=== PATIENT | female | born 1945 | race Caucasian/White ===

== ENCOUNTER → 2016-04-28 | Outpatient (CLI) | payer OTHER ==
[2015-07-08 21:25] VITALS: BP 153/69
[~2016-04-28] MED LIST: ALPR0.5T6 PO; ASPI-482 PO; CETI10TA22 PO; CHOL400C PO; CLOP75TA PO; FEXO1TAB27 PO; HYDR25TA9 PO; MONT10TA9 PO; MULT-208 PO; OMEG1CAP6 PO; PANT40TA3 PO; POTA10CA PO; SIMV20TA3 PO
--- NOTE | 2016-04-28 22:27 | PAIN ---
DATE OF SERVICE: 04/28/2016 INITIAL CONSULTATION DIAGNOSES: Lumbar radiculopathy with lumbar degenerative disk disease, post-lumbar laminectomy syndrome with lumbar spondylosis. HISTORY OF PRESENT ILLNESS: The patient is a 70-year-old female who returns, last seen in 06/2015. The patient had undergone physical therapy at that time with good results with traction in the spine, but pain has been persistently present in the low back and bilateral lower extremities since that time with significant pain again radiating to bilateral lower extremities, somewhat more on the left than the right with previous history of lumbar laminectomy with no treatment of the lumbar spine since the surgery. The patient reports it was around 2004 or so. The patient is taking Tylenol With Codeine, which helps some and also regular strength Tylenol, which helped by about 10-20%, but the patient reports has constant pain in her low back and severe when she is walking, bending, standing, muscle cramping, easy fatiguability of both her legs, worse on the left than the right with ambulation. The patient has not been using any assistive devices recently such as canes or walkers to ambulate, just been holding on to her or to the hand rail and things like to help her stabilize herself. The patient did have chiropractic treatment in the past as well as physical therapy last year. She has been doing some stretching and strengthening exercises that they showed her at the physical therapy even until now, which she tries every morning, but still significant pain radiating to the low back and lower extremities, again worse on the left, radiating to posterior gluteus, posterior thigh, lateral thigh and posterior calf to the level of the ankle, again worse on the left side. PAST MEDICAL HISTORY: Significant for shortness of breath, hypertension, sinus congestion, gastroesophageal reflux, hypercholesterolemia, coronary artery disease, vertigo, anxiety and osteoporosis as well as arthritis. PREVIOUS SURGERY: Include hysterectomy, lumbar laminectomy in 2004, cervical laminectomy, right knee scope in 2010, tubal ligation many years ago. CURRENT MEDICATIONS: Include vitamin D3, multivitamins, omega fish oils, Zyrtec, montelukast, pantoprazole, daily baby aspirin, Plavix, hydrochlorothiazide, potassium chloride, alprazolam, simvastatin, and Lizett. ALLERGIES: The patient is allergic to hydrocodone by her report. SOCIAL HISTORY: The patient does not drink, smoke less than a pack a day, is trying to quit, lives with her spouse and great grandchildren and lives locally in [place], [place]. FAMILY HISTORY: Significant for heart disease, diabetes and cancers. REVIEW OF SYSTEMS: The patient's review of systems is positive for those items mentioned in the history of present illness. It is complete, full, well documented on the patient's chart. All systems were reviewed and otherwise negative. PHYSICAL EXAMINATION: VITAL SIGNS: Today, the patient's blood pressure is 140/71, pulse 72, respirations 18, temperature 98.1 degrees Fahrenheit, height is 5 feet 4 inches and weighs 142 pounds. GENERAL: The patient is awake, alert, oriented, appropriate, very pleasant demeanor. HEENT: Shows normocephalic, atraumatic. Extraocular movements are intact and symmetrical. Oral cavity shows mucous membranes moist and pink. Dentition is intact. NECK: Shows anterior throat supple without palpable lymphadenopathy noted. Neck shows full rotation and motion of the cervical spine without difficulty including extension and flexion. CHEST: Shows normal on inspection. Breath sounds are clear to auscultation bilaterally. HEART: Shows S1 and S2 clear. No murmurs are auscultated. ABDOMEN: Normal on inspection breasts, soft, nontender, nondistended. No palpable organomegaly is noted. No rebound or guarding demonstrated. BACK: Shows grossly midline spine. Normal thoracic kyphotic curvature, cervical lordotic curvature and some mild flattening of lumbar lordotic curvature, previously well-healed surgical scar. On inspection, appears roughly symmetrical; however, with symmetrical paraspinous musculature in the lumbar distribution bilaterally. With palpation is moderately tender with palpation only in the low lumbar distribution with diffuse tenderness to a vgzj-ps-axkoahly extent. No tenderness over the spinous processes. No tenderness over the sacrum or sacroiliac regions. The patient shows good rotation and motion of lumbar spine both laterally as well as extension and flexion without difficulty or pain reported. EXTREMITIES: The patient's lower extremities show deep tendon reflexes 1+ in the patellar and tendo calcaneus tendons. Motor exam is strong with 5/5 dorsiflexion, extension, quadriceps and hamstring flexion and are symmetrical. Peripheral pulses are 1+ in the posterior tibial and dorsalis pedis pulses. No peripheral edema is noted. No clubbing, no cyanosis. Gaenslen's and Moshe's maneuvers are negative bilaterally. The patient does have positive straight leg raise on the left only at about 30-35 degrees, which is decreased with knee flexion, right side is negative. The patient is able to stand, stand on her toes, but has some difficulty with losing balance. She is walking with a slight favour limp with the left lower extremity, but only very minimal, does not require any assistive devices to ambulate. PLAN: Options were discussed with the patient including conservative medical management, physical therapy, interventional techniques and she would like to pursue interventional techniques. We discussed a caudal approach epidural steroid injection with the patient; however, she is taking Plavix, we will need to clear this with her asphalt roller person to hold this for 7 days prior. She is willing to pursue this. Also will require preauthorization and we will wait for insurance provider to provide this as well. We will have the patient return once preauthorization is obtained and if deemed safe and acceptable to hold Plavix from her asphalt roller person. We will have this done as well and plan to have her return for caudal epidural steroid injection at that time. MARLA LEBRON MD DR: HUMBERTO/stefany JOB#: [id number] / [id number]
== END | disposition home or self-care (01) ==
LOC: PNCL 12:09
PROVIDERS: ATTEND Anesthesiology
DX: M51.16 Intervertebral disc disorders with radiculopathy, lumbar region (principal); M96.1 Postlaminectomy syndrome, not elsewhere classified; M47.896 Other spondylosis, lumbar region
CPT/HCPCS: 99214

== ENCOUNTER → 2016-05-18 | Outpatient (CLI) | payer OTHER ==
[2015-07-08 21:25] VITALS: BP 153/69
[~2016-05-18] MED LIST changes: +IOHEXOL 180 MG/ML 10 ML VIAL. ONE; +methylPREDNISolone ACETATE 40 MG/ML VIAL. ONE; +methylPREDNISolone ACETATE 80 MG/ML VIAL. ONE
--- NOTE | 2016-05-19 05:05 | PAIN ---
DATE OF SERVICE: 05/18/2016 DIAGNOSES: Lumbar radiculopathy with lumbar degenerative disk disease, post-lumbar laminectomy syndrome with spondylosis. HISTORY OF PRESENT ILLNESS: A 71-year-old female who returns for followup status post initial evaluation and clearance to hold her Plavix from her picker machine operator, which she has been obtained and has been cleared for 7 days to hold, she has been off this ____ 7 days , still some significant pain in the low back and left lower extremity as it was previously. The pain is sharp and burning and aching, worse with activity, standing, walking anywhere from 4-5 on a scale of 10/10 on scale 10 depending on her activity, worse with increased activity. The patient reports still significant pains, aching and dull, shooting in the left leg as it was previously. The patient reports no new motor or sensory deficits, no new bowel or bladder incontinence or any other complaints. PHYSICAL EXAMINATION: VITAL SIGNS: Today, the patient's blood pressure is 138/62, pulse 65, respirations 18, temperature 97.5 degrees Fahrenheit, height is 5 feet 4 inches, weight is 140 pounds. GENERAL: The patient is awake, alert, oriented, appropriate, very pleasant demeanor. HEENT: Head shows normocephalic, atraumatic. Extraocular movements are intact and symmetrical. Oral cavity, mucous membranes are moist and pink. Dentition is intact. NECK: Shows anterior throat supple without palpable lymphadenopathy noted. Swallow reflex is symmetrical. CHEST: Shows normal on inspection. Breath sounds clear to auscultation bilaterally. HEART: Shows S1 and S2 clear. ABDOMEN: Soft, nontender, nondistended. No palpable organomegaly. No rebound or guarding demonstrated. BACK: Shows spine grossly midline. Well healed surgical scars noted with some flattening of lumbar lordotic curvature. Lumbar paraspinous muscle shows some diffuse tenderness in the middle and lower distribution of paraspinous muscle, but only diffusely without radiation. The patient shows no tenderness over the sacrum or sacroiliac regions with palpation. Lower extremities show deep tendon reflexes 1+ in the patellar and tendo calcaneus tendons are equal. Motor exam is 5/5 with dorsiflexion, extension, quadriceps and hamstring flexion and symmetrical as well. Peripheral pulses are 1+ posterior tibial and dorsalis pedis pulses. No peripheral edema is noted. No clubbing or cyanosis. Options were discussed with the patient and the patient's old chart was reviewed as her current medication regimen updated. Current review of systems updated today as well. We will proceed with a caudal approach epidural steroid injection today with fluoroscopic guidance. Risks were again discussed including, but not limited to bleeding, infection, possibility of epidural hematoma, subsequent neurologic compromise, dural puncture, headaches, spinal cord and/or nerve damage, side effects of steroid medication and poor results regarding pain control. The patient understands and wishes to proceed. The patient will return to clinic in approximately 2 weeks for followup, counseled on return appointment, activity level and side effects to be aware of. DIAGNOSES: Lumbar radiculopathy with lumbar degenerative disk disease, spondylosis and post-lumbar laminectomy syndrome. PROCEDURE: Caudal approach epidural steroid injection using the C-arm fluoroscopic guidance, under sterile prep and drape and using local anesthetic. Medications injected 120 mg Depo-Medrol plus 10 mL of preservative-free normal saline and 2 mL of Isovue for contrast. CONDITION AT DISCHARGE: Stable. The patient tolerated procedure well, had no complications. MARLA LEBRON MD DR: HUMBERTO/stefany JOB#: [id number] / [id number]
== END | disposition home or self-care (01) ==
LOC: PNCL 11:13
PROVIDERS: ATTEND Anesthesiology
DX: M51.16 Intervertebral disc disorders with radiculopathy, lumbar region (principal); M47.26 Other spondylosis with radiculopathy, lumbar region; M96.1 Postlaminectomy syndrome, not elsewhere classified
CPT/HCPCS: 62323; J1030; J1040

== ENCOUNTER → 2016-06-17 | Outpatient (CLI) | payer OTHER ==
[2015-07-08 21:25] VITALS: BP 153/69
[~2016-06-17] MED LIST changes: -IOHEXOL 180 MG/ML 10 ML VIAL. ONE; -methylPREDNISolone ACETATE 40 MG/ML VIAL. ONE; -methylPREDNISolone ACETATE 80 MG/ML VIAL. ONE
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
== END | disposition home or self-care (01) ==
LOC: KCIC CT 10:18
PROVIDERS: ATTEND Physician Assistant Medical
DX: M47.892 Other spondylosis, cervical region (principal); S09.90XD Unspecified injury of head, subsequent encounter; V89.2XXD Person injured in unspecified motor-vehicle accident, traffic, subsequent encounter; X58.XXXD Exposure to other specified factors, subsequent encounter
CPT/HCPCS: 70450; 72050

== ENCOUNTER → 2017-06-24 | Outpatient (CLI) | payer OTHER | END | disposition home or self-care (01) | LOC: KCIC CT 12:17 | DX: J43.9 Emphysema, unspecified (principal); J84.10 Pulmonary fibrosis, unspecified; J34.1 Cyst and mucocele of nose and nasal sinus; Z87.891 Personal history of nicotine dependence | CPT/HCPCS: 70486; 71046 ==

== ENCOUNTER → 2017-10-11 | Outpatient (CLI) | payer OTHER | END | disposition home or self-care (01) | LOC: KCIC MRI 09:38 | DX: M51.36 Other intervertebral disc degeneration, lumbar region (principal); M48.061 Spinal stenosis, lumbar region without neurogenic claudication; M71.38 Other bursal cyst, other site; J43.9 Emphysema, unspecified; Z87.891 Personal history of nicotine dependence | CPT/HCPCS: 72148 ==

== ENCOUNTER → 2017-11-30 | Outpatient (CLI) | payer OTHER ==
[2015-07-08 21:25] VITALS: BP 153/69
[~2017-11-30] MED LIST changes: -POTA10CA PO; +POTA10TA12 PO
--- NOTE | 2017-11-30 12:53 | KCIC ---
Three-view lumbar spine dated 11/30/2017. Comparison made to MRI dated 10/11/2017. CLINICAL INDICATION: Chronic low back pain. Sciatica. Left leg pain for 2 to 3 months. FINDINGS: Standing lateral views were obtained in neutral position, flexion and extension. There is slight anterolisthesis of L3 on L4 and L4 on L5 that appears stable in flexion and extension. Sagittal alignment is otherwise anatomic. Vertebral body heights are maintained. Mild endplate hypertrophic changes throughout with moderate arthrosis lower lumbar apophyseal joints. IMPRESSION: 1. Grade 1 anterolisthesis of L3 on L4 and L4 on L5 with no evidence of instability on the flexion-extension views. 2. Moderate lower lumbar spondylosis. Electronically signed by: Robson Hanson MD (11/30/2017 12:50 PM) [facility]-KCIC[facility]
== END | disposition home or self-care (01) ==
LOC: KCIC 11:07
PROVIDERS: ATTEND Neurological Surgery
DX: M47.896 Other spondylosis, lumbar region (principal); M43.16 Spondylolisthesis, lumbar region; J43.9 Emphysema, unspecified; E87.6 Hypokalemia; I25.10 Atherosclerotic heart disease of native coronary artery without angina pectoris; Z87.891 Personal history of nicotine dependence; Z88.8 Allergy status to other drugs, medicaments and biological substances; Z88.6 Allergy status to analgesic agent
CPT/HCPCS: 72100

== ENCOUNTER → 2017-12-26 | Outpatient (CLI) | payer OTHER ==
[2015-07-08 21:25] VITALS: BP 153/69
--- NOTE | 2017-12-26 17:29 | CARD ---
MR#: [id number] Date of Study: 12/26/2017 Ordering Physician: CHIDI LARA, Referring Physician: CHIDI LRAA, Tech: Jaimee Joyner NIMA APPROVED REPORT EXAM: Two-dimensional and M-mode echocardiogram with Doppler and color Doppler. Other Information Quality : AverageHR: 65bpm Rhythm : NSR INDICATION Dyspnea Fatigue Shortness of breath, Pre Op 2D DIMENSIONS RVDd2.5 (2.9-3.5cm)Left Atrium(2D)2.8 (1.6-4.0cm) IVSd0.7 (0.7-1.1cm)Aortic Root(2D)2.7 (2.0-3.7cm) LVDd4.4 (3.9-5.9cm)LVOT Diameter1.8 (1.8-2.4cm) PWd0.8 (0.7-1.1cm)LVDs3.1 (2.5-4.0cm) FS (%) 28.5 %SV48.0 ml LVEF(%)55.0 (>50%) M-Mode DIMENSIONS Left Atrium(MM)3.07 (2.5-4.0cm)Aortic Root3.16 (2.2-3.7cm) Aortic Valve AoV Peak Jhony.146.9cm/sAoV VTI30.2cm AO Peak GR.8.6mmHgLVOT Peak Jhony.100.6cm/s AO Mean GR.4mmHgAVA (VMAX)1.73cm2 SONU (VTI)1.30fv9RF P 1/2 Wrqw693pz Mitral Valve MV E Trzrorlo24.2cm/sMV E Peak Gr.4mmHg MV DECEL [id number] A Exmmxroi13.3cm/s MV E Mean Gr.2mmHgE/A Ratio0.9 MV A Bfdvhtll350cc Pulmonary Valve PV Peak Oesbknga40.3cm/s Tricuspid Valve TR P. Ulufdyha829lr/sRAP ICETDJJY0xvLk TR Peak Gr.36kwWyCURY53muBr Pulmonary Vein S1 Xtazhbya32.6cm/sD2 Xbdewjxp55.1cm/s PVa yuavhsvd05fanf LEFT VENTRICLE The left ventricle is normal size. There is normal left ventricular wall thickness. The left ventricu lar systolic function is normal and the ejection fraction is within normal range. The Ejection Fracti on is 55%. There is normal LV segmental wall motion. The left ventricular diastolic function and fill ing is normal for age. RIGHT VENTRICLE The right ventricle is normal size. There is normal right ventricular wall thickness. The right ventr icular systolic function is normal. ATRIA The left atrium size is mildly dilated The right atrium size is normal. The interatrial septum is int act with no evidence for an atrial septal defect or patent foramen ovale as noted on 2-D or Doppler i maging. AORTIC VALVE The aortic valve is calcified but opens well. The aortic valve is trileaflet. Doppler and Color Flow revealed mild to moderate aortic regurgitation. There is no significant aortic valvular stenosis. MITRAL VALVE The mitral valve is thickened but opens well. There is no evidence of mitral valve prolapse. There is no mitral valve stenosis. Doppler and Color-flow revealed mild to moderate mitral regurgitation. TRICUSPID VALVE The tricuspid valve is normal in structure and function. Doppler and Color Flow revealed mild tricusp id regurgitation. There is mild pulmonary hypertension. The PA pressure was estimated at 30 mmHg. The re is no tricuspid valve prolapse or vegetation. There is no tricuspid valve stenosis. PULMONIC VALVE The pulmonary valve is normal in structure Doppler and Color Flow revealed mild pulmonic valvular reg urgitation. There is no pulmonic valvular stenosis. GREAT VESSELS The aortic root is normal in size. The ascending aorta is normal in size. PERICARDIAL EFFUSION There is no evidence of significant pericardial effusion. Fat pad noted. Critical Notification Critical Value: No <Conclusion> The left ventricular systolic function is normal and the ejection fraction is within normal range. T he Ejection Fraction is 55%. The left atrium size is mildly dilated The right atrium size is normal. The aortic valve is calcified but opens well. The aortic valve is trileaflet. Doppler and Color Flow revealed mild to moderate aortic regurgitation. Doppler and Color-flow revealed mild to moderate mitral regurgitation. Doppler and Color Flow revealed mild tricuspid regurgitation. There is mild pulmonary hypertension. The PA pressure was estimated at 30 mmHg. Doppler and Color Flow revealed mild pulmonic valvular regurgitation. There is no evidence of significant pericardial effusion. Fat pad noted. Signed by : Chidi Lara MD Electronically Approved : 12/26/2017 17:28:42
== END | disposition home or self-care (01) ==
LOC: ECHO 12:31
PROVIDERS: ATTEND Internal Medicine Cardiovascular Disease
DX: Z01.810 Encounter for preprocedural cardiovascular examination (principal); I08.3 Combined rheumatic disorders of mitral, aortic and tricuspid valves; I27.20 Pulmonary hypertension, unspecified; J43.9 Emphysema, unspecified; E87.6 Hypokalemia; I25.10 Atherosclerotic heart disease of native coronary artery without angina pectoris; Z88.6 Allergy status to analgesic agent; Z88.8 Allergy status to other drugs, medicaments and biological substances
CPT/HCPCS: 93306

== ENCOUNTER → 2018-01-25 | Outpatient (CLI) | payer OTHER ==
[2015-07-08 21:25] VITALS: BP 153/69
[~2018-01-25] MED LIST changes: +ASPI325T8 PO; +DOCU-109 PO; +HYDR-971 PO; +METH-38 PO
--- NOTE | 2018-01-25 14:38 | EKG ---
[facility] [address] [place] [address] Test Date: 2018-01-25 Test Time: 13:45:44 Pat Name: FARHAD ALCANTARA Department: Room: Gender: F Crab Steamer: KADI : 1945 Requested By: CARIDAD TROY Order Number: [id number] Reading MD: Kevin Saeed MD Measurements Intervals Albert Rate: 61 P: 47 NH: 176 QRS: 32 QRSD: 76 T: 48 QT: 392 QTc: 396 Interpretive Statements SINUS RHYTHM Electronically Signed On 01-26-2018 11:27:30 CDT by Kevin Saeed MD
== END | disposition home or self-care (01) ==
LOC: SURGPAT 13:33
PROVIDERS: ATTEND Neurological Surgery
DX: Z01.818 Encounter for other preprocedural examination (principal); M71.38 Other bursal cyst, other site; M54.16 Radiculopathy, lumbar region
CPT/HCPCS: 87641; 93005

== ENCOUNTER 2018-02-02 06:45 | Day surgery (SDC) | payer OTHER ==
[~2018-02-02] VITALS: Ht 160 cm; Wt 65.8 kg
[~2018-02-02 06:45] MED LIST changes: +BACITRACIN 50,000 UNIT in IV NORMAL SALINE 1000ML BAG 1,000 ML IRR ONE; +BUPIVAC MPF-EPI 0.5%-1:200000 30 ML VIAL. ONE; -DOCU-109 PO; +GELATIN SPONGE SIZE 100. ONE; +KETOROLAC 60 MG/2 ML INJ FOR OR. ONE; -METH-38 PO; +THROMBIN TOPICAL 5,000 UNIT VIAL. ONE
[2018-02-02] MEDS ORDERED: HYDROmorphone 2 MG/ML VIAL IV PRN (07:00)
[2018-02-02] MEDS ORDERED: PROCHLORPERAZINE 10 MG/2 ML VIAL. IV PRN (07:00)
[2018-02-02] MEDS ORDERED: ONDANSETRON PF 4 MG/2 ML VIAL. IV PRN (07:00)
[2018-02-02] MEDS ORDERED: MORPHINE SULFATE 2 MG/ML VIAL. IV PRN (07:00)
[2018-02-02] MEDS ORDERED: fentaNYL PF VIAL 100 MCG/2 ML VIAL IV PRN ×2 (07:00)
[2018-02-02] MEDS ORDERED: LIDOCAINE 1% PF 2 ML VIAL. ID PRN (07:00)
[2018-02-02] MEDS ORDERED: IV RINGERS,LACTATED 1000ML 1,000 ML IV SCH (07:00)
[2018-02-02] MEDS ORDERED: ceFAZolin 2GM PREMIX 2 GM/50 ML BAG IV ONE (08:00)
[2018-02-02] MEDS ORDERED: MIDAZOLAM HCL/PF 2 MG/2 ML VIAL. ONE (08:21)
[2018-02-02] MEDS ORDERED: ROCURONIUM 50 MG/5 ML VIAL. ONE (08:22)
[2018-02-02] MEDS ORDERED: fentaNYL PF VIAL 250 MCG/5 ML VIAL ONE (08:22)
[2018-02-02] MEDS ORDERED: REMIFENTANIL 2 MG VIAL. IV ONE (08:22)
[2018-02-02] MEDS ORDERED: ONDANSETRON PF 4 MG/2 ML VIAL. ONE (08:23)
[2018-02-02] MEDS ORDERED: PROPOFOL 20 ML IV ONE (08:23)
[2018-02-02] MEDS ORDERED: DEXAMETHASONE SOD PHOS 20 MG/5 ML VIAL. ONE (08:23)
[2018-02-02] MEDS ORDERED: PHENYLEPHRINE in 0.9% NACL PF 1 MG/10 ML SYRINGE. IV ONE (08:23)
[2018-02-02] MEDS ORDERED: PROPOFOL 50 ML IV ONE (08:23)
[2018-02-02] MEDS ORDERED: LIDOCAINE 1% PF 5 ML VIAL. ONE (08:24)
--- NOTE | 2018-02-02 10:50 | PREOP HP ---
DATE OF SERVICE: 02/02/2018 HISTORY OF PRESENT ILLNESS: The patient is a pleasant 72-year-old who is having difficulty with low back pain and pain, which radiates to her left lateral thigh and leg. She notes burning in her left side. She feels a little weak in her left leg. The problem has been present for 4 months. She rates her pain as a 6/10. The problem started spontaneously. Walking and standing increases her pain. Sitting helps her. She takes [place]. She has undergone physical therapy in the past. She does take Plavix. She uses a cane to help with ambulation. PAST MEDICAL HISTORY: Arthritis, chest pain, headache or migraine, heart attack or failure, hypertension, osteoporosis, shingles, tonsillitis, trauma. PAST SURGICAL HISTORY: Tubal ligation in 1973, hysterectomy in 2003, a lumbar surgery in 2004, cervical surgery 2008 and [place] in 2010, right eye cataract 2011, left eye cataract 2011. FAMILY HISTORY: Cancer, diabetes, heart problems and disease, hypertension, migraine headache. SOCIAL HISTORY: Retired. . Denies substance abuse. Smokes 1 pack per day and has for 30 years. Drinks alcohol 1-2 times per year. Drinks coffee and soda daily. ALLERGIES: ANTIDEPRESSANTS. CURRENT MEDICATIONS: Alprazolam, [place], pantoprazole, hydrochlorothiazide, clopidogrel, potassium, montelukast, Glenn Aspirin and Zyrtec. REVIEW OF SYSTEMS: A 12-point review of systems was obtained and is noncontributory except for that mentioned above. PHYSICAL EXAMINATION: NEUROSURGERY EXAMINATION: GENERAL APPEARANCE: Alert, pleasant, in no acute distress. HEAD: Normocephalic and atraumatic. SKIN: Warm and dry. MUSCULOSKELETAL: Lumbar paraspinal muscle bulk is normal, restricted range of motion of lumbar spine, blrb-sm-dydmjhjb tenderness of lower lumbar spine with palpation, normal range of motion of the lower extremities bilaterally. EXTREMITIES: No clubbing, cyanosis or edema. NEUROLOGIC: Alert and oriented x 3, normal recent and remote memory, strength 5/5 in bilateral lower extremities, sensory was intact to light touch in the lower extremities bilaterally, reflexes were absent at the knees and ankles. Negative straight leg raising bilaterally, antalgic gait favoring her left leg, ambulates with a cane. IMAGING: I reviewed a lumbar MRI scan. On that study, there was a grade 1 anterolisthesis at L2-L3, L3-L4 and L4-L5. At L3-L4, there is a left-sided synovial cyst, which markedly narrows the left lateral recess and is associated with ligamentum flavum that is thickened. When compared to previous study in 2016, the size of the synovial cyst has increased. It does appear to be in contact with the descending left L4 nerve root. ASSESSMENT/PLAN: The patient has a grade 1 anterolisthesis at L3-L4 along with synovial cyst at that level though which is enlarged and is compressing her left L4 nerve root. She has significant lumbar radiculopathy. I am going to have her undergo lumbar flexion and extension films to evaluate her more fully. If there is no significant motion, then my recommendation is going to be for simple lumbar microdecompressive surgery with removal of synovial cyst at L3-L4 on the left to see if this will help her. If there is motion of significance at L3-L4, she will, in addition to removal of synovial cyst, require an instrumented lumbar fusion. I discussed this with her in detail. She understands the surgery and the risks involved. She would like to proceed. We will make the arrangements. CARIDAD TROY MD DR: KEYON/stefany JOB#: [id number] / [id number] VANCE
[2018-02-02] MEDS ORDERED: GLYCOPYRROLATE 1 MG/5 ML VIAL. ONE (11:07)
[2018-02-02] MEDS ORDERED: NEOSTIGMINE METHYLSULFATE 5 MG/5 ML SYRINGE. ONE (11:08)
--- NOTE | 2018-02-02 11:20 | DISCH ---
DISCHARGE INSTRUCTIONS Condition on Discharge Condition on Discharge: Stable Activity After Discharge Activity Instructions for Disc: Activity as tolerated, Avoid exertion Other activity instructions: no driving for a week Bathing Instructions: Shower-keep dressing dry Lifting Instructions after Dis: No heavy lifting, No pulling or pushing, Do not lift >10 pounds Diet after Discharge Additional Diet Restrictions: resume home diet Wound Incision Care Wound/Incision Care: Ice to area for comfort Other wound/incision instructi: may remove dressing in 48 hrs if dry then may shower, no soaking Contacting the after DC Call your doctor for: Concerns you may have Follow-Up Follow up with: F/u with Dr. Troy's nurse in 2 weeks [phone] CARIDAD TROY MD Feb 02, 2018 11:20
[2018-02-02] MEDS ORDERED: DOCU-109 PO (11:26)
[2018-02-02] MEDS ORDERED: METH-38 PO (11:26)
[2018-02-02] MEDS ORDERED: PROCHLORPERAZINE 10 MG/2 ML VIAL. ONE (11:46)
[2018-02-02] MEDS ORDERED: ALPRAZolam 0.5 MG TABLET PO PRN (12:15)
[2018-02-02] MEDS ORDERED: HYDROcodone/APAP 5/325MG 1 TAB TABLET PO PRN (12:15)
--- NOTE | 2018-02-02 12:41 | OP ---
DATE OF SURGERY: 02/02/2018 PREOPERATIVE DIAGNOSIS: Synovial cyst, left L3-L4 with severe left lumbar radiculopathy. POSTOPERATIVE DIAGNOSIS: Synovial cyst, left L3-L4 with severe left lumbar radiculopathy. OPERATION PERFORMED: Lumbar microdecompression, left L3-L4; removal of synovial cyst and decompression of the dural sac and left L4 root. The operation was done with EMG monitoring, SSEP monitoring, fluoroscopy, microscopic dissection. SURGEON: Davy Troy M.D. OPERATING ENGINEER APPRENTICE: GOMEZ Stock assisted with the surgery. She assisted with the exposure, the microdecompression as well as the closure. OPERATIVE INDICATIONS: This is a pleasant 72-year-old woman who developed severe low back pain along with left leg discomfort. On imaging studies, she was found to have synovial cyst on the left side at L3-L4 with severe nerve root compression and I recommended lumbar microsurgery to remove the synovial cyst. I spoke with her about the surgery, the risks, technique and the expected postoperative course. She did have spondylolisthesis at several levels, but on flexion and extension films, there was no significant motion. I discussed with her the surgery and the risks. I spoke with her about the possibility that sometime in the future, she may need instrumentation if her spondylolisthesis became a problem and caused severe pain. She understood the surgery, the rationale and wished to go ahead. DESCRIPTION OF PROCEDURE: Following general endotracheal anesthesia, the patient was positioned prone on the Jassi table. Lumbar region prepped and draped in standard fashion. PRISCILA hose and AV impulse boots were applied for DVT prophylaxis. The microscope was draped. Fluoroscopy was draped and brought into field. Monitoring was established. Ancef 2 grams was given less than 1 hour prior to initiation of surgery. Using fluoroscopic guidance, a midline posterior incision was made directly over the L3-L4 disc space. I dissected down skin and subcutaneous tissue, reflected the paraspinal muscles laterally and placed a Pocahontas micro disc retractor. I brought in the high-speed air drill and using the microscope and microscopic technique, I burred down a very generous hemilaminotomy. When I reached the dura, there was considerable scarring. The synovial cyst was markedly compressing the dura and the nerve root at this level and extended inferiorly into the facet joints and also compressed markedly the L4 root following its takeoff. I gently worked and microscopically the dura from the underlying cyst and scar frequently requiring the use of the arachnoid knife to remove small bands of scar and help fully allow an excellent safe exposure. I then from superiorly to inferiorly peeled away the synovial cyst and then removed this from this field. I performed a partial foraminotomy and worked gently through the scar, dissected and visualized very well the L4 root and fully decompress the root. The dura which had been markedly compressed moved to a natural position. The disc was flat, no discectomy was warranted. I did perform a very generous foraminotomy in order to fully decompress the entire region. Following this, I irrigated copiously with antibiotic solution. I removed the retractor. Hemostasis was excellent throughout the case. I gently closed the wound with absorbable sutures and skin was closed with a 4-0 subcuticular stitch. The operation went very well. I was quite pleased with the surgery. DAVY TROY MD DR: KEYON/stefany JOB#: [id number] / [id number] VANCE
[2018-02-02 13:15] VITALS: BP 132/88
--- NOTE | 2018-02-06 23:07 | PATHOLOGY ---
[facility] Accession Number: [id number] . 01 Material submitted: . PART A: LUMBAR DECOMPRESSION PART B: SYNOVIAL CYST . 02 Diagnosis: A. "Lumbar decompression", decompression: - Decalcified bone, articular cartilage, periosteum, fibroadipose connective tissue and skeletal muscle with reactive and degenerative changes. . B. "Synovial cyst", excision: - Fibrous connective tissue with extensive myxoid degeneration consistent with synovial cyst. . (CLW:mm; 02/06/18) [facility]/02/06/2018 . 02 Electronically signed: . Gabriela Daniel MD, Pathologist NPI- [id number] . 01 Gross description: . A. The specimen is received in formalin, labeled "Jessica Ramsey, lumbar decompression", are multiple irregular fragment of leavitt-pink to dark brown rubbery to firm soft tissue admixed with possible bone fragments measuring 2.6 x 1.5 x 1.0 cm in aggregate. Plasma Center Technician tissue is submitted in A1 after decalcification. . B. The specimen is received in formalin, labeled "Roxy, Jessica, synovial cyst", is a leavitt pink irregular soft tissue measuring 1.7 x 1.2 x 0.4 cm the specimen is serially section to reveal a possible disrupted cyst. The specimen is entirely submitted in B1. ([facility]; 02/02/2018) [facility] . 02 Pathologist provided ICD-10: M51.36, M71.38 . 02 CPT . 878430, 945446, 953813 Specimen Comment: A courtesy copy of this report has been sent to Specimen Comment: [phone], . Specimen Comment: Report sent to / DR LOPEZ Performed at: 01 [facility] [address], [place], [place] [id number] MD Adolph Dobbins MD Phone: [phone] Performed at: 02 [facility] [address], [place] [id number] MD Glenn Sheldon MD Phone: [phone]
== END 2018-02-02 13:40 | disposition home or self-care (01) ==
LOC: SURG 06:45 → OPSVCIP 06:50 → UNDOADMIN 06:50 → EDSTATUS 08:30 → SURG 13:40
PROVIDERS: ATTEND Neurological Surgery
DX: M54.16 Radiculopathy, lumbar region (principal); M51.36 Other intervertebral disc degeneration, lumbar region; M71.38 Other bursal cyst, other site; E11.9 Type 2 diabetes mellitus without complications; I10 Essential (primary) hypertension; G43.909 Migraine, unspecified, not intractable, without status migrainosus; F17.210 Nicotine dependence, cigarettes, uncomplicated; M19.90 Unspecified osteoarthritis, unspecified site; M81.0 Age-related osteoporosis without current pathological fracture; B02.9 Zoster without complications; J03.90 Acute tonsillitis, unspecified; Z90.710 Acquired absence of both cervix and uterus; Z88.8 Allergy status to other drugs, medicaments and biological substances; Z82.49 Family history of ischemic heart disease and other diseases of the circulatory system; Z98.51 Tubal ligation status
CPT/HCPCS: 63030; 76000; 88304; 88311; 97161; A7015; J0690; J0780; J1100; J1885; J2370; J2405; J2704; J2710; J3010; J3490; J7030; J7120; J2250

== ENCOUNTER → 2018-08-23 | Outpatient (CLI) | payer OTHER ==
[~2018-08-23] MED LIST changes: -BACITRACIN 50,000 UNIT in IV NORMAL SALINE 1000ML BAG 1,000 ML IRR ONE; -BUPIVAC MPF-EPI 0.5%-1:200000 30 ML VIAL. ONE; +DOCU-109 PO; -GELATIN SPONGE SIZE 100. ONE; +HYDR-2145 PO; +HYDR-3164 PO; -HYDR-971 PO; -HYDR25TA9 PO; -KETOROLAC 60 MG/2 ML INJ FOR OR. ONE; +METH-38 PO; -THROMBIN TOPICAL 5,000 UNIT VIAL. ONE
--- NOTE | 2018-08-23 13:45 | KCIC ---
CT HEAD WO CONTRAST History: Right facial pain and pressure, right ear pain and dizziness, elevated blood pressure Comparison: June 17, 2016 Technique: Noncontrast CT imaging was performed of the head. Exposure: One or more of the following individualized dose reduction techniques were utilized for this examination: 1. Automated exposure control 2. Adjustment of the mA and/or kV according to patient size 3. Use of iterative reconstruction technique. Findings: No acute extra-axial or parenchymal hemorrhage is identified. There is no significant intra-axial mass effect, midline shift, or extra-axial fluid collection. The leavitt-white differentiation of the major vascular territories is preserved. The ventricles, sulci, and cisterns are within normal limits in size and configuration. The mastoid air cells and the visualized paranasal sinuses are aerated. No acute calvarial abnormality is identified. Impression: 1. No acute intracranial abnormality is identified. Electronically signed by: Jareth Cox MD (08/23/2018 1:42 PM) [facility]
== END | disposition home or self-care (01) ==
LOC: KCIC CT 13:15
PROVIDERS: ATTEND Family Medicine
DX: R51 Headache (principal)
CPT/HCPCS: 70450

== ENCOUNTER → 2019-02-12 | Outpatient (CLI) | payer OTHER ==
[~2019-02-12] MED LIST changes: +MONT10TA49 PO; -MONT10TA9 PO; -PANT40TA3 PO; +PANT40TA77 PO; +SIMV20TA18 PO; -SIMV20TA3 PO
--- NOTE | 2019-02-12 16:25 | RAD ---
AP and Lateral Views of the Chest 02/12/2019 12:00 AM Indication: Cough Comparison: Chest radiograph June 24, 2017 Findings: Calcified granuloma, left lower lobe is stable. There is no focal consolidation or infiltrate identified. The cardiomediastinal silhouette is within normal limits. There is no evidence of pneumothorax or pleural effusion. No acute osseous abnormalities are identified. Impression: No evidence of acute cardiopulmonary process. Electronically signed by: Christopher Voss MD (02/12/2019 4:22 PM) [facility]
== END | disposition home or self-care (01) ==
LOC: RAD 12:47
PROVIDERS: ATTEND Otolaryngology
DX: J84.10 Pulmonary fibrosis, unspecified (principal)
CPT/HCPCS: 71046

== ENCOUNTER → 2019-02-12 | Outpatient (CLI) | payer OTHER ==
--- NOTE | 2019-02-12 14:04 | CARD ---
MR#: [id number] Date of Study: 02/12/2019 Ordering Physician: WENDY GOMEZ, Referring Physician: WENDY GOMEZ Tech: Danae Hernandez RDCS APPROVED REPORT EXAM: Two-dimensional and M-mode echocardiogram with Doppler and color Doppler. Other Information Quality : Good INDICATION Cardiac Disease: CAD 2D DIMENSIONS RVDd2.3 (2.9-3.5cm)Left Atrium(2D)2.7 (1.6-4.0cm) IVSd0.7 (0.7-1.1cm)Aortic Root(2D)2.6 (2.0-3.7cm) LVDd4.6 (3.9-5.9cm)LVOT Diameter1.9 (1.8-2.4cm) PWd0.9 (0.7-1.1cm)LVDs3.2 (2.5-4.0cm) FS (%) 31.2 %SV57.2 ml LVEF(%)59.0 (>50%) Aortic Valve AoV Peak Jhony.138.3cm/sAoV VTI24.3cm AO Peak GR.7.7mmHgLVOT Peak Jhony.114.3cm/s AO Mean GR.4mmHgAVA (VMAX)2.38cm2 SONU (VTI)2.75lu3VT P 1/2 Evxx253ds Mitral Valve MV E Qltuuqqa37.9cm/sMV DECEL BMVJ883tc MV A Hwxmnpwu775.7cm/sE/A Ratio0.8 Tricuspid Valve TR P. Wffufeex157lf/sRAP ZDGRAZPN6wnOa TR Peak Gr.45sdOtMMZU10fxLo Pulmonary Vein S1 Qnbbqoym10.2cm/sD2 Szxrgald94.3cm/s LEFT VENTRICLE The left ventricle is normal size. There is normal left ventricular wall thickness. The left ventricu lar systolic function is normal and the ejection fraction is within normal range. The Ejection Fracti on is 55-60%. There is normal LV segmental wall motion. Transmitral Doppler flow pattern is Grade I-a bnormal relaxation pattern. RIGHT VENTRICLE The right ventricle is normal size. The right ventricular systolic function is normal. ATRIA The left atrium size is normal. The right atrium size is normal. The interatrial septum is intact wit h no evidence for an atrial septal defect or patent foramen ovale as noted on 2-D or Doppler imaging. AORTIC VALVE The aortic valve is calcified but opens well. Doppler and Color Flow revealed mild aortic regurgitati on. There is no significant aortic valvular stenosis. MITRAL VALVE The mitral valve is normal in structure and function. There is no evidence of mitral valve prolapse. There is no mitral valve stenosis. Doppler and Color-flow revealed mild mitral regurgitation. TRICUSPID VALVE The tricuspid valve is normal in structure and function. Doppler and Color Flow revealed mild tricusp id regurgitation. There is mild pulmonary hypertension. The PA pressure was estimated at 33 mmHg. The re is no tricuspid valve stenosis. PULMONIC VALVE Doppler and Color Flow revealed mild pulmonic valvular regurgitation. There is no pulmonic valvular s tenosis. GREAT VESSELS The aortic root is normal in size. The ascending aorta is normal in size. The IVC is normal in size a nd collapses >50% with inspiration. PERICARDIAL EFFUSION There is no evidence of significant pericardial effusion. Critical Notification Critical Value: No <Conclusion> The left ventricular systolic function is normal and the ejection fraction is within normal range. Th e Ejection Fraction is 55-60%. There is normal LV segmental wall motion. Doppler and Color Flow revealed mild aortic regurgitation. Doppler and Color Flow revealed mild tricuspid regurgitation. There is mild pulmonary hypertension. T he PA pressure was estimated at 33 mmHg. Signed by : Kevin Saeed, Electronically Approved : 02/12/2019 14:04:24
== END | disposition home or self-care (01) ==
LOC: ECHO 12:43
PROVIDERS: ATTEND Internal Medicine Cardiovascular Disease
DX: I08.8 Other rheumatic multiple valve diseases (principal); I27.20 Pulmonary hypertension, unspecified; I25.10 Atherosclerotic heart disease of native coronary artery without angina pectoris
CPT/HCPCS: 93306

== ENCOUNTER → 2019-11-13 | Outpatient (CLI) | payer OTHER ==
[2019-08-07 11:08] VITALS: BP 152/67
[~2019-11-13] MED LIST changes: +ASPI-630 PO; +ASPI325T11 PO; +ATOR40TA59 PO; -CETI10TA22 PO; +CETI10TA24 PO; +HYDR12.58 PO; +METO25TA4 PO; +NITR0.4T24 SL
--- NOTE | 2019-11-21 16:44 | RAD ---
MR#: [id number] Date of Study: 11/13/2019 Ordering Physician: WENDY GOMEZ, Referring Physician: WENDY GOMEZ, Tech: Nasir Lemos MBA, RDMS, RVT, RDCS, RTR APPROVED REPORT Patient Location: OUT-PATIENT Laterality:Bilateral Indications cad Doppler Spectral Velocity Analysis Right Left pCCA 95/11 cm/spCCA 114/16 cm/s mCCA 95/10 cm/smCCA 87/8 cm/s dCCA 76/12 cm/sdCCA 92/12 cm/s Bulb 89/10 cm/sBulb 62/12 cm/s ECA 176/ cm/sECA 155/ cm/s pICA 81/17 cm/spICA 61/16 cm/s Rod 80/15 cm/smICA 72/16 cm/s dICA 79/17 cm/sdICA 100/23 cm/s Vert. 70/ cm/sVert. 72/ cm/s Subcl. 104/ cm/sSubcl. 127/ cm/s ICA/CCA 0.85ICA/CCA 0.88 Findings Grayscale images of the bilateral common carotid, internal and external carotid vessels demonstrates mild to moderate diffuse intimal hyperplasia with mild carotid plaque at the level of the bifurcation s. In the bilateral external carotid arteries there is likely a greater than 50% stenosis. Bilatera l internal carotid vessels are unremarkable for any significant stenosis. Bilateral vertebral veloci ties are antegrade. Normal bilateral ICA to CCA ratios. No significant subclavian velocity elevatio n is noted. Critical Notification Critical Value: No <Conclusion> 1. No significant internal carotid arterial disease bilaterally Signed by : Kevin Saeed, Electronically Approved : 11/21/2019 16:44:26
== END ==
LOC: US 15:07
PROVIDERS: ATTEND Internal Medicine Cardiovascular Disease
DX: I25.10 Atherosclerotic heart disease of native coronary artery without angina pectoris (principal)
CPT/HCPCS: 93880

== ENCOUNTER → 2020-09-23 | Outpatient (CLI) | payer MEDICARE, OTHER ==
[2019-08-07 11:08] VITALS: BP 152/67
[~2020-09-23] MED LIST changes: -CETI10TA24 PO; +CETI10TA74 PO; +GADOTERATE 7.5 MMOL/15ML VIAL. IVP ONE
--- NOTE | 2020-09-23 16:47 | KCIC ---
EXAMINATION: Magnetic resonance imaging (MRI) of the lumbar spine with and without contrast 09/23/2020 3:25 PM HISTORY: Lumbar radiculopathy with history of prior surgery. TECHNIQUE: Multiplanar multi-weighted MRI of the lumbar spine was performed with and without intraven ous contrast using the standard lumbar spine protocol. Contrast information: Gadolinium based contrast. COMPARISON: MRI lumbar spine 10/11/2017 FINDINGS: There is persistent grade 1 anterolisthesis of L3 on L4 measuring 5 mm and grade 1 anterolisthesis of L4 on L5 measuring 5 mm. Vertebral body heights are maintained. No acute fracture. Disc heights are maintained with disc desiccation identified from L2-L3 through L5-S1. Conus medullaris terminates at L1. Distal spinal cord signal intensity is normal in all sequences. This congenital narrowing of the spinal canal, similar to prior examination. Abdominal aorta is ectatic, stable. No suspicious retrope ritoneal lymphadenopathy. T1 hypointensity involving the sacral opal bilaterally which could reflect sacral insufficiency fractures, new from the prior examination. L2-L3: There is a circumferential disc bulge. Mild facet arthropathy. Mild left neuroforaminal stenos is. Mild spinal canal stenosis. Findings are stable. L3-L4: There is a circumferential disc bulge with retraction of the disc along the left foraminal zon e as compared to prior examination. Moderate severe facet arthropathy. Partial lumpectomy changes. Mo derate bilateral neuroforaminal stenosis. No residual spinal canal stenosis. There is improved mass e ffect on the left subarticular zone as compared to prior examination. L4-L5: There is a circumferential disc bulge. Moderate facet arthropathy with ligamentum flavum infol ding. Moderate to severe left and moderate right neural foraminal stenosis. Laminectomy decompression without residual spinal canal stenosis. L5-S1: There is a circumferential disc bulge with central disc protrusion. Moderate facet arthropathy . There is persistent narrowing the left subarticular zone. Laminectomy decompression without residua l spinal canal stenosis. IMPRESSION: 1. Moderate degenerative changes of the lumbar spine with postsurgical changes as described in detail above. There is improved left neuroforaminal and left subarticular zone stenosis at L3-L4 as compare d to prior examination with retraction of the disc versus postsurgical change. 2. Sacral insufficiency fractures involving the S1 sacral opal. 3. Stable ectasia of infrarenal abdominal aorta. Electronically signed by: Macarena Watters MD (09/23/2020 4:45 PM) [id number]
--- NOTE | 2020-09-23 17:05 | KCIC ---
EXAM: LUMBAR SPINE 3 VIEWS. HISTORY: Lumbar radiculopathy, bilateral lower extremity weakness. COMPARISON: 11/30/2017. FINDINGS: There are calcified granulomas in the left hilum and left base. Atherosclerotic calcificati ons are noted. Disconnected leads project within the soft tissues posterior to the lumbosacral juncti on. Suture material is suspected within the right paraspinal distribution at L4-5. There is grade 1 anterolisthesis at L3-L5. Non-instrumented fusion is suspected along the lateral bere ments from L4 through S1. There is mild degenerative disc disease from L3 through S1. No fractures ar e identified. IMPRESSION: 1. Correlate for not instrumented fusion from L4 through S1. 2. Grade 1 anterolisthesis from L3 through L5. 3. Mild degenerative disc disease from L3 through L5. Electronically signed by: John Brooks MD (09/23/2020 5:03 PM) [id number]
== END ==
LOC: KCIC MRI 15:09
PROVIDERS: ATTEND Neurological Surgery
DX: M51.17 Intervertebral disc disorders with radiculopathy, lumbosacral region (principal); M47.27 Other spondylosis with radiculopathy, lumbosacral region; M48.58XA Collapsed vertebra, not elsewhere classified, sacral and sacrococcygeal region, initial encounter for fracture; I77.811 Abdominal aortic ectasia; M48.061 Spinal stenosis, lumbar region without neurogenic claudication
CPT/HCPCS: 72100; 72158; 82565; A9575